=== PATIENT | male | born 1970 | race Caucasian/White ===

== ENCOUNTER 2020-10-23 17:06 | Emergency (ER) | payer OTHER, MEDICAID, SELFPAY ==
[2020-10-23] VITALS (16 sets, daily range): BP systolic 123–155; BP diastolic 78–100; PULSE 88–115; RESP 15–26; TEMP 37.5–38.1; O2SAT 94–100; BMI 30.5
--- NOTE | 2020-10-23 17:19 | DI.CT.S_ITS ---
PROCEDURE: CT HEAD/BRAIN WO CON INDICATIONS: fell, head injury 3 days ago. On brillinta TECHNIQUE: Noncontrast 4.5 mm thick angled axial sections acquired from the foramen magnum to the vertex, with coronal and sagittal reformats. For radiation dose reduction, the following was used: automated exposure control, adjustment of mA and/or kV according to patient size. COMPARISON: None. FINDINGS: Image quality: Excellent. CSF spaces: Basal cisterns are patent. No extra-axial fluid collections. The ventricles are symmetric in size and shape. Brain: No intracranial bleeds or masses. There is cerebral volume loss for age, with resultant ventricular and sulcal prominence. There are periventricular and deep white matter chronic small vessel ischemic changes. There is intracranial internal carotid artery atherosclerosis. Skull and face: Calvarium and visualized facial bones appear intact, without suspicious lesions. Sinuses: Visualized sinuses and mastoids are clear. IMPRESSION: Negative for acute stroke, hemorrhage, or mass. No evidence of significant intracranial sequelae of acute trauma. Dictated by: Gian Tinajero M.D. on 10/23/2020 at 16:49 Approved by: Gian Tinajero M.D. on 10/23/2020 at 16:50
--- NOTE | 2020-10-23 17:19 | DI.RAD.S_ITS ---
PROCEDURE: XR CHEST 1V INDICATIONS: chest pain, etoh abuse TECHNIQUE: One view of the chest was acquired. COMPARISON: None. FINDINGS: Surgical changes and devices: None. Lungs and pleura: Lungs are clear. No pleural effusions or pneumothorax. Mediastinum: Mediastinal contours appear normal. Heart size is normal. Bones and chest wall: No suspicious bony lesions. Overlying soft tissues appear unremarkable. IMPRESSION: No evidence acute pulmonary process. Dictated by: Gian Tinajero M.D. on 10/23/2020 at 16:48 Approved by: Gian Tinajero M.D. on 10/23/2020 at 16:49
[2020-10-23 17:58] LABS: Add Manual Diff / Slide Review NO; Basophils Absolute Auto 100 /uL (0-100); Basophils Percent Auto 0.9 % (0-2); Eosinophils Absolute Auto 0 /uL (0-450); Eosinophils Percent Auto 0.1 % (2-4); Hematocrit 45.1 % (41-53); Hemoglobin 15.4 g/dL (13.5-17.5); Lymphocytes Absolute Auto 1400 /uL (1100-4500); Lymphocytes Percent Auto 12.4 % (25-40); Mean Corpuscular HGB Conc 34.1 % (30-36); Mean Corpuscular Hemoglobin 30.6 PG (26-34); Mean Corpuscular Volume 89.5 fL (80-100); Monocytes Absolute Auto 1000 /uL (0-900); Monocytes Percent Auto 8.8 % (3-14); Neutrophils Absolute Auto 9000 /uL (1500-7000); Neutrophils Percent Auto 77.8 % (50-75); Platelet Count 119 X10^3/uL (150-400); Red Blood Cell Count 5.03 X10^6/uL (4.5-5.9); Red Cell Distribution Width 13.1 % (11.6-14.8); White Blood Cell Count 11.6 X10^3/uL (4.5-11.0)
[2020-10-23 18:03] LABS: Prothrombin Time 10.9 SECONDS (10.1-12.7)
[2020-10-23] MEDS: ASPIRIN 81 MG CHEW TAB 324 MG PO (18:03)
[2020-10-23] MEDS: SODIUM CHLORIDE 0.9% 1,000 ML 150 ML IV (18:03)
[2020-10-23 18:06] LABS: PTT Partial Thromboplastin Tim 30 SECONDS (26.4-36.2)
[2020-10-23 18:08] LABS: Alanine Aminotransferase 32 IU/L (<50); Albumin 4.2 g/dL (3.5-5.0); Albumin Globulin Ratio 1.2 (1.0-2.8); Alkaline Phosphatase 69 U/L (38-126); Aspartate Aminotransferase 55 IU/L (17-59); BUN Creatinine Ratio 6.7 (6-22); Bilirubin Total 1.6 mg/dL (0.2-1.3); Blood Urea Nitrogen 5 mg/dL (9-20); Calcium 8.9 mg/dL (8.4-10.2); Carbon Dioxide 22 mmol/L (22-32); Chloride 101 mmol/L (98-107); Creatine Kinase 614 U/L (55-170); Estimated Glomerular Filt Rate > 60.0 mL/min (>60); Globulin 3.4 g/dL (1.7-4.1); Glucose 111 mg/dL (70-100); HEMOLYSIS < 15 (0-50); Lipase 87 U/L (23-300); Potassium 3.6 mmol/L (3.4-5.1); Sodium 138 mmol/L (137-145); Total Protein 7.6 g/dL (6.3-8.2)
[2020-10-23] MEDS: LORazepam 2 MG/ML INJ 1 MG IV (18:16)
[2020-10-23 18:20] LABS: NT-proBNP (BNP-Adult 18+) 184 pg/mL (<125); Troponin I < 0.012 ng/mL (0.01-0.034)
[2020-10-23 18:23] LABS: CKMB % Relative Index 0.9 % (1.5-5.0); Creatine Kinase MB 5.82 ng/mL (<2.37)
--- NOTE | 2020-10-23 18:48 | ED_ITS ---
HPI - Chest Pain General Chief Complaint: Chest Pain Stated Complaint: Tightening in Chest,HX Heart Attack, Alcohol Detox Time Seen by Provider: 10/23/20 17:19 Source: patient Mode of arrival: Ambulatory Limitations: no limitations History of Present Illness HPI narrative: Patient is a 50-year-old male who is history of alcoholism and presents is with wanting detox. He also has history of coronary artery disease fact as he had a stent placed 1 year ago. However at that time actually had CPR and cardiac arrest including of the fib arrest. Today he was having some chest tightness. It seems to have gone away. He denies any shortness of breath no radiation of pain not currently having chest pain. He has not been taking his Brilinta or other medications due to his alcohol some. A few days ago he also fell down and hit his head. No loss of consciousness but continues to have severe headache. Patient states that prior to COVID he had a good routine and was sober. His he would go to an AA meeting and to work and then he would exercise afterwards. Unfortunately with [facility] his AA meeting was canceled and [facility] AA is not as effective. He there for started drinking again. He lives in [place] but is appear interviewing for a job. He has has suicidal thoughts but not currently suicidal no homicidal thoughts. Denies any other drug use. He states he definitely drinks at least 6 beers daily and also drink half a 5th of vodka without issue Related Data Previous Rx's Medication Instructions Recorded atorvastatin 80 mg PO BEDTIME #30 tab 10/23/20 carvedilol [Coreg] 6.25 mg PO BID #60 tab 10/23/20 lisinopril 20 mg PO DAILY #30 tab 10/23/20 lorazepam [Ativan] 1 mg PO BID PRN #12 tab 10/23/20 ticagrelor [Brilinta] 90 mg PO BID #60 tab 10/23/20 Allergies Allergy/AdvReac Type Severity Reaction Status Date / Time No Known Drug Allergies Allergy Verified 10/23/20 20:04 Review of Systems Review of Systems ROS Unobtainable: All systems reviewed & are unremarkable except as noted in HPI and below Constitutional Constitutional: Denies chills, Denies fever(s), Denies lethargy and Denies weakness Cardiovascular Cardiovascular: Reports as per HPI, Denies syncope, Denies dyspnea and Denies dyspnea on exertion Respiratory Respiratory: Denies cough, Denies dyspnea, Denies dyspnea on exertion and Denies wheezing Gastrointestinal Gastrointestinal: Denies abdominal pain, Denies change in bowel habits, Denies diarrhea, Denies nausea and Denies vomiting Musculoskeletal Musculoskeletal: Denies back pain and Denies myalgias Integumentary/Breasts Skin/Breast: Denies pruritus, Denies erythema, Denies rash and Denies wounds Neurologic Neurologic: Denies syncope, Denies convulsions and Denies weakness Allergic/Immunologic Allergic/Immunologic: Denies wheezing Patient History alcohol intake frequency: 3 or more drinks per day Alcohol type: beer and hard liquor Substance Use Type: does not use Exam Initial Vital Signs Initial Vital Signs: Vital Signs Temperature 99.5 F 10/23/20 17:16 Pulse Rate 115 H 10/23/20 17:16 Respiratory Rate 20 10/23/20 17:16 Blood Pressure 144/100 H 10/23/20 17:16 Pulse Oximetry 99 10/23/20 17:16 GENERAL: Alert 50-year-old male poor hygiene and in no acute distress. HEENT: Head atraumatic no sign of head injury,EOMI, pupils reactive, face symmetric, moist mucous membranes CARDIOVASCULAR: Regular rate and rhythm without murmurs, rubs or gallops. RESPIRATORY: Breath sounds equal bilaterally, no wheezes rales or rhonchi. ABDOMEN: Soft, nontender. Normoactive bowel sounds all 4 quadrants. No guarding or rebound. EXTREMITIES: Normal range of motion, no clubbing or edema. Neurovascularly in tact NEUROLOGICAL: Alert and oriented x4.Normal gait and speech. SKIN: Warm, dry, no laceration, no petechiae, no rashes or lesions. Course Orders Ordered: ED Orders 10/24/20 00:10 COVID19 - ADMIT (NON LICENSED OPERATOR swab/PCR) Stat Sodium Chloride (Normal Saline 0.9%) 1,000 mls @ 150 mls/hr IV CONT ANA Last Infusion: 10/23/20 20:34 Dose: 0 mls/hr Documented by: Admin: 10/23/20 18:03 Dose: 150 mls/hr Documented by: KAPIL Discontinued Medications Acetaminophen (Acetaminophen 325 Mg Tablet) 650 mg PO NOW ONE Stop: 10/23/20 23:59 Last Admin: 10/24/20 00:08 Dose: 650 mg Documented by: MELO Aspirin (Aspirin 81 Mg Chew Tab) 324 mg PO NOW ONE Stop: 10/23/20 17:20 Last Admin: 10/23/20 18:03 Dose: 324 mg Documented by: KAPIL Lorazepam (Lorazepam 2 Mg/Ml Inj) 1 mg IV NOW ONE Stop: 10/23/20 17:58 Last Admin: 10/23/20 18:16 Dose: 1 mg Documented by: KAPIL Lorazepam (Lorazepam 2 Mg/Ml Inj) 2 mg IV NOW ONE Stop: 10/23/20 19:41 Last Admin: 10/23/20 19:44 Dose: 2 mg Documented by: MELO Lorazepam (Lorazepam 2 Mg/Ml Inj) 2 mg IV NOW ONE Stop: 10/23/20 23:43 Last Admin: 10/23/20 23:51 Dose: 2 mg Documented by: MELO Ondansetron HCl (Ondansetron 4 Mg/2 Ml Inj) 4 mg IV NOW ONE Stop: 10/23/20 19:41 Last Admin: 10/23/20 19:44 Dose: 4 mg Documented by: MELO Vital Signs Vital signs: Vital Signs - 8 hr 10/23/20 23:30 10/24/20 00:00 10/24/20 00:30 Temperature 100.6 F H Pulse Rate 108 H 95 H 90 Respiratory Rate 22 19 20 Blood Pressure 142/86 H 124/82 122/80 Pulse Oximetry 95 93 94 10/24/20 01:00 10/24/20 01:13 10/24/20 01:30 Temperature 100.3 F H Pulse Rate 88 82 Respiratory Rate 18 18 Blood Pressure 130/79 125/83 Pulse Oximetry 96 95 10/24/20 02:00 10/24/20 02:30 10/24/20 03:00 Temperature Pulse Rate 79 76 72 Respiratory Rate 29 H 24 15 Blood Pressure 124/77 119/79 134/89 Pulse Oximetry 96 97 96 10/24/20 03:30 10/24/20 04:00 10/24/20 04:30 Temperature Pulse Rate 74 71 70 Respiratory Rate 15 15 13 Blood Pressure 121/79 118/87 134/90 Pulse Oximetry 95 96 97 10/24/20 05:00 10/24/20 05:30 Temperature Pulse Rate 69 72 Respiratory Rate 14 13 Blood Pressure 124/76 129/87 Pulse Oximetry 97 98 MDM - Chest Pain Lab Data Attestation: I reviewed the patient's lab results. Result diagrams: 10/23/20 17:50 10/23/20 17:50 Labs: Lab Results 10/23/20 10/23/20 10/23/20 Range/Units 17:50 17:50 17:50 WBC 11.6 H (4.5-11.0) X10^3/uL RBC 5.03 (4.5-5.9) X10^6/uL Hgb 15.4 (13.5-17.5) g/dL Hct 45.1 (41-53) % MCV 89.5 (80-100) fL MCH 30.6 (26-34) PG MCHC 34.1 (30-36) % RDW 13.1 (11.6-14.8) % Plt Count 119 L (150-400) X10^3/uL Neut % (Auto) 77.8 H (50-75) % Lymph % (Auto) 12.4 L (25-40) % Phillips % (Auto) 8.8 (3-14) % Eos % (Auto) 0.1 L (2-4) % Baso % (Auto) 0.9 (0-2) % Neut # (Auto) 9000 H (5697-8806) /uL Lymph # (Auto) 1400 (8704-6682) /uL Phillips # (Auto) 1000 H (0-900) /uL Eos # (Auto) 0 (0-450) /uL Baso # (Auto) 100 (0-100) /uL PT 10.9 (10.1-12.7) SECONDS INR 1.0 (0.9-1.3) APTT 30 (26.4-36.2) SECONDS Sodium 138 (137-145) mmol/L Potassium 3.6 (3.4-5.1) mmol/L Chloride 101 (98-107) mmol/L Carbon Dioxide 22 (22-32) mmol/L BUN 5 L (9-20) mg/dL Creatinine 0.75 (0.66-1.25) mg/dL Estimated GFR > 60.0 (>60) mL/min BUN/Creatinine Ratio 6.7 (6-22) Glucose 111 H (70-100) mg/dL Calcium 8.9 (8.4-10.2) mg/dL Total Bilirubin 1.6 H (0.2-1.3) mg/dL AST 55 (17-59) IU/L ALT 32 (<50) IU/L Alkaline Phosphatase 69 (38-126) U/L Total Creatine Kinase 614 H (55-170) U/L CK-MB (CK-2) 5.82 H (<2.37) ng/mL CK-MB (CK-2) Rel Index 0.9 L (1.5-5.0) % Troponin I < 0.012 (0.01-0.034) ng/mL NT-Pro-B Natriuret Pep 184 H (<125) pg/mL Total Protein 7.6 (6.3-8.2) g/dL Albumin 4.2 (3.5-5.0) g/dL Globulin 3.4 (1.7-4.1) g/dL Albumin/Globulin Ratio 1.2 (1.0-2.8) Lipase 87 (23-300) U/L Ethyl Alcohol ( - 10) mg/dL SARS-CoV-2 (PCR) (Negative) 10/23/20 10/23/20 10/23/20 Range/Units 17:50 18:19 20:35 WBC (4.5-11.0) X10^3/uL RBC (4.5-5.9) X10^6/uL Hgb (13.5-17.5) g/dL Hct (41-53) % MCV (80-100) fL MCH (26-34) PG MCHC (30-36) % RDW (11.6-14.8) % Plt Count (150-400) X10^3/uL Neut % (Auto) (50-75) % Lymph % (Auto) (25-40) % Phillips % (Auto) (3-14) % Eos % (Auto) (2-4) % Baso % (Auto) (0-2) % Neut # (Auto) (5777-1980) /uL Lymph # (Auto) (2714-6787) /uL Phillips # (Auto) (0-900) /uL Eos # (Auto) (0-450) /uL Baso # (Auto) (0-100) /uL PT (10.1-12.7) SECONDS INR (0.9-1.3) APTT (26.4-36.2) SECONDS Sodium (137-145) mmol/L Potassium (3.4-5.1) mmol/L Chloride (98-107) mmol/L Carbon Dioxide (22-32) mmol/L BUN (9-20) mg/dL Creatinine (0.66-1.25) mg/dL Estimated GFR (>60) mL/min BUN/Creatinine Ratio (6-22) Glucose (70-100) mg/dL Calcium (8.4-10.2) mg/dL Total Bilirubin (0.2-1.3) mg/dL AST (17-59) IU/L ALT (<50) IU/L Alkaline Phosphatase (38-126) U/L Total Creatine Kinase (55-170) U/L CK-MB (CK-2) (<2.37) ng/mL CK-MB (CK-2) Rel Index (1.5-5.0) % Troponin I < 0.012 (0.01-0.034) ng/mL NT-Pro-B Natriuret Pep (<125) pg/mL Total Protein (6.3-8.2) g/dL Albumin (3.5-5.0) g/dL Globulin (1.7-4.1) g/dL Albumin/Globulin Ratio (1.0-2.8) Lipase (23-300) U/L Ethyl Alcohol 90 H ( - 10) mg/dL SARS-CoV-2 (PCR) Negative (Negative) 10/24/20 Range/Units 00:10 WBC (4.5-11.0) X10^3/uL RBC (4.5-5.9) X10^6/uL Hgb (13.5-17.5) g/dL Hct (41-53) % MCV (80-100) fL MCH (26-34) PG MCHC (30-36) % RDW (11.6-14.8) % Plt Count (150-400) X10^3/uL Neut % (Auto) (50-75) % Lymph % (Auto) (25-40) % Phillips % (Auto) (3-14) % Eos % (Auto) (2-4) % Baso % (Auto) (0-2) % Neut # (Auto) (8101-3013) /uL Lymph # (Auto) (2667-8028) /uL Phillips # (Auto) (0-900) /uL Eos # (Auto) (0-450) /uL Baso # (Auto) (0-100) /uL PT (10.1-12.7) SECONDS INR (0.9-1.3) APTT (26.4-36.2) SECONDS Sodium (137-145) mmol/L Potassium (3.4-5.1) mmol/L Chloride (98-107) mmol/L Carbon Dioxide (22-32) mmol/L BUN (9-20) mg/dL Creatinine (0.66-1.25) mg/dL Estimated GFR (>60) mL/min BUN/Creatinine Ratio (6-22) Glucose (70-100) mg/dL Calcium (8.4-10.2) mg/dL Total Bilirubin (0.2-1.3) mg/dL AST (17-59) IU/L ALT (<50) IU/L Alkaline Phosphatase (38-126) U/L Total Creatine Kinase (55-170) U/L CK-MB (CK-2) (<2.37) ng/mL CK-MB (CK-2) Rel Index (1.5-5.0) % Troponin I (0.01-0.034) ng/mL NT-Pro-B Natriuret Pep (<125) pg/mL Total Protein (6.3-8.2) g/dL Albumin (3.5-5.0) g/dL Globulin (1.7-4.1) g/dL Albumin/Globulin Ratio (1.0-2.8) Lipase (23-300) U/L Ethyl Alcohol ( - 10) mg/dL SARS-CoV-2 (PCR) Negative (Negative) Imaging Data CT scan - head: Radiologist's Impression: PROCEDURE: CT HEAD/BRAIN WO CON INDICATIONS: fell, head injury 3 days ago. On brillinta TECHNIQUE: Noncontrast 4.5 mm thick angled axial sections acquired from the foramen magnum to the vertex, with coronal and sagittal reformats. For radiation dose reduction, the following was used: automated exposure control, adjustment of mA and/or kV according to patient size. COMPARISON: None. FINDINGS: Image quality: Excellent. CSF spaces: Basal cisterns are patent. No extra-axial fluid collections. The ventricles are symmetric in size and shape. Brain: No intracranial bleeds or masses. There is cerebral volume loss for age, with resultant ventricular and sulcal prominence. There are periventricular and deep white matter chronic small vessel ischemic changes. There is intracranial internal carotid artery atherosclerosis. Skull and face: Calvarium and visualized facial bones appear intact, without suspicious lesions. Sinuses: Visualized sinuses and mastoids are clear. IMPRESSION: Negative for acute stroke, hemorrhage, or mass. No evidence of significant intracranial sequelae of acute trauma. Dictated by: Gian Tinajero M.D. on 10/23/2020 at 16:49 Approved by: Gian Tinajero M.D. on 10/23/2020 at 16:50 Chest x-ray: Radiologist's Impression: PROCEDURE: XR CHEST 1V INDICATIONS: chest pain, etoh abuse TECHNIQUE: One view of the chest was acquired. COMPARISON: None. FINDINGS: Surgical changes and devices: None. Lungs and pleura: Lungs are clear. No pleural effusions or pneumothorax. Mediastinum: Mediastinal contours appear normal. Heart size is normal. Bones and chest wall: No suspicious bony lesions. Overlying soft tissues appear unremarkable. IMPRESSION: No evidence acute pulmonary process. Dictated by: Gian Tinajero M.D. on 10/23/2020 at 16:48 Approved by: Gian Tinajero M.D. on 10/23/2020 at 16:4 ECG Data Attestation: I personally reviewed and interpreted this ECG as follows: Prior ECG tracings: not available for review Interpretation: Sinus rate 1 6 as needed 152 QRS 4 QTC [address] changes no priors to compare MDM Narrative Medical decision making narrative: Patient has 2 neg troponins no longer having chest pain. He actually had an interview with the crisis Center and was accepted but needs to take his home medications. Unfortunately he does not have any of his pills with him they are in would in fill he has no wait to get them. He is feeling slightly anxious he has been given a few doses of Ativan. I have happily written him for his home medications however detox will still not take him unless he physically has the pills. Patient now resting and sleeping comfortably. Patient has no ride taxicab are no longer running. It is very unclear how patient got too [place] Discharge Plan Departure Patient Disposition: Home Clinical Impression: Alcohol abuse Instructions: Alcohol Use Disorder Activity Restrictions/Additional Instructions: *You have been diagnosed with alcohol abuse *What to do: I am sorry to say that they will not take you into detox tonight. His please start taking your home medications as previously prescribed. I have also written you an Ativan taper which I strongly recommend you take without drinking alcohol. You may still tried to get into detox at a later date. We spoke to sobering services on [address] in [place] *Continue to take medications as directed Ativan taper as prescribed All your home medications as prescribed *Follow up with your primary care provider in 2-3 days *Return to ER if you should have chest pain, headache, vomiting or any new, worsening or concerning symptoms Prescriptions: New lisinopril 20 mg tablet 20 mg PO DAILY Qty: 30 RF: 0 carvedilol [Coreg] 6.25 mg tablet 6.25 mg PO BID Qty: 60 RF: 0 atorvastatin 80 mg tablet 80 mg PO BEDTIME Qty: 30 RF: 0 Brilinta 90 mg tablet 90 mg PO BID Qty: 60 RF: 0 lorazepam [Ativan] 1 mg tablet 1 mg PO BID PRN (Reason: alcohol withdrawal) Qty: 12 RF: 0
[2020-10-23 19:02] LABS: Ethanol (ETOH) 90 mg/dL
[2020-10-23 19:22] LABS: COVID-19 CEPHEID PCR (VTM/NP) Negative (Negative)
[2020-10-23] MEDS: LORazepam 2 MG/ML INJ IV ×2 (19:44→23:51)
[2020-10-23] MEDS: ONDANSETRON 4 MG/2 ML INJ IV (19:44)
[2020-10-23 21:10] LABS: Troponin I < 0.012 ng/mL (0.01-0.034)
[2020-10-24] VITALS (23 sets, daily range): BP systolic 118–149; BP diastolic 76–102; PULSE 67–111; RESP 0–29; TEMP 37.9; O2SAT 93–98
[2020-10-24] MEDS: ACETAMINOPHEN 325 MG TABLET 650 MG PO (00:08)
[2020-10-24 01:09] LABS: COVID19 - ADMIT (NP swab/PCR) Negative (Negative)
--- NOTE | 2020-10-24 04:23 | PC.NURSE ---
Patient denies chest pain; is a poor historian but states that he is here at the hospital to detox from alcohol.
--- NOTE | 2020-10-24 13:12 | CM.SWNOTE ---
Addendum entered by GUY Askew 10/24/20 15:29: ADD: SW called [facility] and they can accept and will get pt's meds filled at [facility] next door. SW requested [facility] to set up [employer] with voucher to [facility] and SW updated pt and he is still agreeable. BF Original Note: Patient is a 50 year old male who was admitted to [place] ED on 10/24/20 for ETOH/fall. Pt has [facility] for insurance. Per ED MD, pt medically stable to d/c but pt requesting ETOH detox/tx. SW met briefly after pt discharge in the waiting room as ED was full and pt confirms he lives near [facility] and was here for an interview for a job and has recently relapsed over the past year. Pt had success previously with stopping cold turkey and utilizing AA meetings, having work, and excercise but since COVID and in-person AA was not available he fell off the [facility]. Pt has attempted cold turkey sobriety multiple times before with withdrawal symptoms of tremors, nausea, shakes, but denies any hx of seizures. SW discussed possible options of Subacute community detox with support in getting into tx, given outpt resources for TAMIKO assessment and tx. Pt states he is agreeable to [facility] in [place] and completing phone intake and pt is hopeful to get into Inpt ETOH tx and has a hx of Inpt ETOH tx about 11 years ago with no recent tx outpt. SW helped pt to get on the phone with [facility] to complete the screening and ED WIRE WINDING MACHINE OPERATOR faxed the clinicals to review. VALERI just called [facility] at 1300 and confirmed they received the fax but still need to review. Plan: VALERI to follow closely to confirm pt accepted at [facility] in [place]. GUY Askew
== END 2020-10-24 12:20 | disposition home or self-care (01) ==
PROVIDERS: Emergency Medicine; Emergency Provider Emergency Medicine
DX: F10.10 Alcohol abuse, uncomplicated (principal); R51.9 Headache, unspecified; S09.90XA Unspecified injury of head, initial encounter; W19.XXXA Unspecified fall, initial encounter; Z20.822 Contact with and (suspected) exposure to COVID-19
CPT/HCPCS: 36415; 70450; 71045; 80053; 80320; 82550; 82553; 83690; 83880; 84484; 85025; 85610; 85730; 87635; 93005; 93010; 96361; 96374; 96375; 96376; 99284; C9803; U0003; J2060; J2405